=== PATIENT | male | born 1975 | race American Indian/Alaskan Native ===

== ENCOUNTER 2016-02-14 12:25 | Emergency (ER) | payer OTHER ==
[2016-02-14] MEDS ORDERED: DUONEB 0.5 MG-3 MG/3 ML SOLN IH ONE (21:09)
--- NOTE | 2016-02-14 21:11 | Emergency Department Report ---
HPI - General Chief Complaint: Upper Respiratory Infection Time Seen by Provider: 02/14/16 20:52 - HPI HPI: This is a 40 year-old male who presents to the emergency department with complaint of a 2 week history of a productive cough and chest congestion. It is associated with some her minute feelings of hot and cold but the patient has never actually checked himself for fever. He tried some over- the-counter Mucinex D and NyQuil with some transient relief but not resolution. He is a tobacco smoker. No recent travel or sick contacts at home. He does not have a primary care doctor. He denies any chest pain, rash, back pain, nausea, vomiting or diarrhea. ED Past Medical Hx - Past Medical History Previous Medical History?: No Hx Asthma: Yes - Surgical History Past Surgical History?: No - Medications Home Medications: Home Medications Medication Instructions Recorded Confirmed Last Taken Type ALBUTEROL Inhaler [ProAir HFA 2 puff IH QID PRN #1 inhalation 02/14/16 Unknown Rx Inhaler] Azithromycin [Zithromax Z-WYATT] 250 mg PO DAILY #6 tab 02/14/16 Unknown Rx guaiFENesin/CODEINE [Robitussin AC] 5 ml PO Q6H PRN #100 ml 02/14/16 Unknown Rx ED Review of Systems ROS: Stated complaint: CHEST CONGESTION Other details as noted in HPI Comment: All other systems reviewed and negative Constitutional: chills. denies: weakness Eyes: denies: eye pain, eye discharge, vision change ENT: congestion. denies: ear pain, throat pain Respiratory: cough. denies: shortness of breath, wheezing Cardiovascular: denies: chest pain, palpitations Gastrointestinal: denies: abdominal pain, nausea, diarrhea Genitourinary: denies: urgency, dysuria Musculoskeletal: denies: back pain, joint swelling, arthralgia Skin: denies: rash, lesions Neurological: denies: headache, weakness, paresthesias Physical Exam - Physical Exam Vital Signs: Vital Signs 02/14/16 14:53 Temperature 98.7 F Pulse Rate 108 H Respiratory 16 Rate Blood Pressure 159/85 O2 Sat by Pulse 97 Oximetry Physical Exam: GENERAL: The patient is well-developed well-nourished. Patient does not appear in any acute distress. HEENT: Normocephalic. Atraumatic. Extraocular motions are intact. Patient has moist mucous membranes. Pupils equal reactive to light bilaterally. NECK: Supple. Trachea is midline. CHEST/LUNGS: Clear to auscultation. No cough heard during examination. No tachypnea or accessory muscle use. There is no respiratory distress noted. HEART/CARDIOVASCULAR: Regular. There is no tachycardia. There is no gallop rub or murmur. ABDOMEN: Abdomen is soft, nontender. Patient has normal bowel sounds. There is no abdominal distention. Obese habitus. SKIN: There is no rash. There is no edema. There is no diaphoresis. NEURO: The patient is awake, alert, and oriented. The patient is cooperative. The patient has no focal neurologic deficits. The patient has normal speech. MUSCULOSKELETAL: There is no tenderness or deformity. There is no limitation range of motion. There is no evidence of acute injury. ED Course Vital Signs 02/14/16 14:53 Temperature 98.7 F Pulse Rate 108 H Respiratory 16 Rate Blood Pressure 159/85 O2 Sat by Pulse 97 Oximetry ED Medical Decision Making - Radiology Data Radiology results: image reviewed interpreted by me: Chest x-ray did not show any acute process. Heart is normal shape and size. No effusions. No pneumothorax. No signs of pneumonia seen. - Medical Decision Making 40-year-old male presents the emergency department with a 2 to three-week history of lingering productive cough and chest congestion. Patient's vitals stable including being afebrile. Chest x-ray does not show any acute process. Given a breathing treatment and upon reevaluation says he is feeling better. Patient will be discharged home with albuterol inhaler, Robitussin-AC and a Z- Wyatt. Given referrals for primary care. He will return to the ER with any worsening of his symptoms or any acute distress. - Differential Diagnosis URI, bronchitis, pneumonia, asthma Critical Care Time: No Critical care attestation.: If time is entered above; I have spent that time in minutes in the direct care of this critically ill patient, excluding procedure time. ED Disposition Clinical Impression: Bronchitis Upper respiratory infection Qualifiers: URI type: unspecified URI Qualified Code(s): J06.9 - Acute upper respiratory infection, unspecified Hypertension Qualifiers: Hypertension type: essential hypertension Qualified Code(s): I10 - Essential ( primary) hypertension Disposition: DISCHARGED TO HOME OR SELFCARE Is pt being admited?: No Does the pt Need Aspirin: No Condition: Stable Instructions: Acute Bronchitis (ED), Hypertension (ED) Additional Instructions: Please follow-up with a primary care doctor in the next few days. Return to the emergency department with any worsening of your symptoms or any acute distress. You've been prescribed a medication that is sedating. Therefore this medication cannot be mixed with alcohol, or taken prior to driving, working, or being responsible for children. Prescriptions: ALBUTEROL Inhaler [ProAir HFA Inhaler] 2 puff IH QID PRN #1 inhalation PRN Reason: Shortness Of Breath guaiFENesin/CODEINE [Robitussin AC] 5 ml PO Q6H PRN #100 ml PRN Reason: Cough Azithromycin [Zithromax Z-WYATT] 250 mg PO DAILY #6 tab Referrals: PRIMARY CAREMD [Primary Care Provider] - 3-5 Days PINA SPAIN MD [Staff Physician] - 3-5 Days [facility] [Outside] - 3-5 Days Time of Disposition: 22:11
[2016-02-14 22:53] VITALS: BP 139/91
--- NOTE | 2016-02-15 07:55 | XRay Report ---
ROUTINE CHEST, TWO VIEWS: HISTORY: Cough. The trachea, heart, mediastinal contour, lung corona and bony thorax are unremarkable. IMPRESSION: Unremarkable chest x-ray.
== END 2016-02-14 22:46 | disposition home or self-care (01) ==
LOC: ED 12:25
DX: J40 Bronchitis, not specified as acute or chronic (principal); J06.9 Acute upper respiratory infection, unspecified; I10 Essential (primary) hypertension; J45.909 Unspecified asthma, uncomplicated
CPT/HCPCS: 71020; 94640

== ENCOUNTER 2016-09-19 07:55 | Inpatient (IN) | payer OTHER ==
[2016-09-19 08:24] LABS: Eosinophils % (Auto) 0.6 % (0.0-4.3)
[2016-09-19 08:30] LABS: Bilirubin,Urine NEG (Negative); Blood,Urine NEG (Negative); Ketones,Urine TR mg/dL (Negative); Leukocyte Esterase,Urine NEG (Negative); Mucus,Urine FEW /HPF; Nitrite,Urine NEG (Negative); Protein,Urine <15 mg/dL mg/dL (Negative); Urobilinogen,Urine < 2.0 mg/dL (<2.0); WBC,Urine < 1.0 /HPF (0.0-6.0)
[2016-09-19 08:44] LABS: Anion Gap TNR mmol/L; Blood Urea Nitrogen TNR mg/dL (9-20); Carbon Dioxide TNR mmol/L (22-30); Chloride TNR mmol/L (98-107); Potassium TNR mmol/L (3.6-5.0); Sodium TNR mmol/L (137-145)
[2016-09-19 08:45] LABS: BUN/Creatinine Ratio TNR; Calcium TNR mg/dL (8.4-10.2); Glucose TNR mg/dL (75-100)
[2016-09-19 09:00] LABS: Hemoglobin 17.2 gm/dl (11.8-15.2); White Blood Count 6.7 K/mm3 (4.5-11.0)
[2016-09-19 09:02] LABS: Basophils % (Auto) 0.9 % (0.0-1.8); Hematocrit 45.9 % (35.5-45.6); Mean Corpuscular Hemoglobin 33 pg (28-32); Mean Corpuscular Volume 88 fl (84-94); Mean Platelet Volume 11.7 fl (6-12); Platelet Count 296 K/mm3 (140-440); Red Cell Distribution Width 13.1 % (13.2-15.2)
[2016-09-19 09:03] LABS: Mean Corpuscular HGB Conc 37 % (32-34)
[2016-09-19 09:52] LABS: Chloride 77.3 mmol/L (98-107)
[2016-09-19 09:53] LABS: Anion Gap 26 mmol/L; BUN/Creatinine Ratio 28.57; Blood Urea Nitrogen 20 mg/dL (9-20); Carbon Dioxide 20 mmol/L (22-30)
[2016-09-19 09:57] LABS: Sodium 117 mmol/L (137-145)
[2016-09-19 09:58] LABS: Glucose 698 mg/dL (75-100); Potassium 6.5 mmol/L (3.6-5.0)
[2016-09-19] MEDS ORDERED: NovoLIN R 100 UNITS in NACL 0.9% 99 ML IV SCH ×2 (10:00→11:00)
[2016-09-19] MEDS ORDERED: NACL 0.9% 1000 ML 2,000 ML IV ONE (10:00)
[2016-09-19] MEDS ORDERED: D50W (25GM) Syringe IV PRN ×2 (10:00→10:24)
--- NOTE | 2016-09-19 10:03 | Emergency Department Report ---
ED General Adult HPI - General Chief complaint: Urogenital-Male Stated complaint: OVERACTIVE BLADDER/BLURRED VISION Time Seen by Provider: 09/19/16 08:49 Source: patient, RN notes reviewed Mode of arrival: Ambulatory Limitations: No Limitations - History of Present Illness Initial comments: This is a 41-year-old male. He is previously unknown to me. Does not currently have a primary care doctor. Has a past medical history of asthma. Presents to the ER with 2 weeks of painless polyuria, polydipsia, blurry vision , lack of sleep. Symptoms are constant. They're getting worse. They do not have exacerbating or relieving factors. No headache, neck pain, chest pain, abdominal pain, testicular pain, skin rash. -: Gradual Consistency: constant Improves with: rest Associated Symptoms: loss of appetite, malaise, weakness - Related Data Home Medications Medication Instructions Recorded Confirmed Last Taken No Known Home Medications [No 09/19/16 09/19/16 Unknown Reported Home Medications] Allergies Allergy/AdvReac Type Severity Reaction Status Date / Time shellfish derived AdvReac Hives Verified 09/19/16 10:10 ED Review of Systems ROS: Stated complaint: OVERACTIVE BLADDER/BLURRED VISION Other details as noted in HPI Constitutional: malaise, weakness Eyes: vision change. denies: eye discharge ENT: denies: epistaxis Respiratory: denies: cough Cardiovascular: denies: chest pain Gastrointestinal: denies: abdominal pain Genitourinary: frequency Musculoskeletal: denies: back pain Skin: denies: lesions Neurological: weakness Psychiatric: denies: anxiety ED Past Medical Hx - Past Medical History Previous Medical History?: Yes Hx Asthma: Yes - Surgical History Past Surgical History?: No - Social History Smoking Status: Current Every Day Smoker Substance Use Type: Alcohol - Medications Home Medications: Home Medications Medication Instructions Recorded Confirmed Last Taken Type No Known Home Medications [No 09/19/16 09/19/16 Unknown History Reported Home Medications] ED Physical Exam - General Limitations: No Limitations General appearance: alert, in no apparent distress - Head Head exam: Present: atraumatic, normocephalic - Eye Eye exam: Present: normal appearance, EOMI - ENT ENT exam: Present: normal exam, normal orophraynx, mucous membranes moist, normal external ear exam - Neck Neck exam: Present: normal inspection, full ROM. Absent: tenderness, meningismus - Respiratory Respiratory exam: Present: normal lung sounds bilaterally. Absent: respiratory distress, wheezes, rales, rhonchi, stridor, chest wall tenderness - Cardiovascular Cardiovascular Exam: Present: normal rhythm, tachycardia, normal heart sounds. Absent: systolic murmur, diastolic murmur, rubs, gallop - GI/Abdominal GI/Abdominal exam: Present: soft, normal bowel sounds. Absent: distended, tenderness, guarding, rebound, rigid, pulsatile mass - Rectal Rectal exam: Present: deferred - Extremities Exam Extremities exam: Present: normal inspection, full ROM, normal capillary refill. Absent: tenderness, pedal edema, joint swelling, calf tenderness - Back Exam Back exam: Present: normal inspection, full ROM. Absent: tenderness, CVA tenderness (R), CVA tenderness (L), muscle spasm, paraspinal tenderness, vertebral tenderness - Neurological Exam Neurological exam: Present: alert, oriented X3, normal gait, other (Extraocular movements intact. Tongue midline. No facial droop. Facial sensation intact to light touch in the V1, V2, V3 distribution bilaterally. 5 and 5 strength in 4 extremities.. Sensation is intact to light touch in 4 extremities.). Absent : motor sensory deficit - Psychiatric Psychiatric exam: Present: normal affect, normal mood - Skin Skin exam: Present: warm, dry, intact, normal color. Absent: rash ED Course Vital Signs 09/19/16 09/19/16 09/19/16 08:00 09:19 13:02 Temperature 97.9 F Pulse Rate 109 H Respiratory 18 20 Rate Blood Pressure 154/88 O2 Sat by Pulse 97 100 Oximetry ED Medical Decision Making - Lab Data Result diagrams: 09/19/16 08:11 09/19/16 12:54 Vital Signs 09/19/16 09/19/16 08:00 09:19 Temperature 97.9 F Pulse Rate 109 H Respiratory 18 20 Rate Blood Pressure 154/88 O2 Sat by Pulse 97 Oximetry Lab Results 09/19/16 09/19/16 09/19/16 Range/Units 08:03 08:11 08:11 WBC 6.7 (4.5-11.0) K/mm3 RBC 5.20 H (3.65-5.03) M/mm3 Hgb 17.2 H (11.8-15.2) gm/dl Hct 45.9 H (35.5-45.6) % MCV 88 (84-94) fl MCH 33 H (28-32) pg MCHC 37 H (32-34) % RDW 13.1 L (13.2-15.2) % Plt Count 296 (140-440) K/mm3 Lymph % (Auto) 28.4 (13.4-35.0) % Bollinger % (Auto) 9.0 H (0.0-7.3) % Eos % (Auto) 0.6 (0.0-4.3) % Baso % (Auto) 0.9 (0.0-1.8) % Lymph # 1.9 (1.2-5.4) K/mm3 Bollinger # 0.6 (0.0-0.8) K/mm3 Eos # 0.0 (0.0-0.4) K/mm3 Baso # 0.1 (0.0-0.1) K/mm3 Seg Neutrophils % 60.5 (40.0-70.0) % Seg Neutrophils # 4.2 (1.8-7.7) K/mm3 VBG pH (7.320-7.420) Sodium TNR Potassium TNR Chloride TNR Carbon Dioxide TNR Anion Gap TNR BUN TNR Creatinine TNR Estimated GFR TNR BUN/Creatinine Ratio TNR Glucose TNR POC Glucose > 500 H (70-105) Hemoglobin A1c (4-6) % Calcium TNR Phosphorus (2.5-4.5) mg/dL Magnesium (1.7-2.3) mg/dL Urine Color (Yellow) Urine Turbidity (Clear) Urine pH (5.0-7.0) Ur Specific Toney (1.003-1.030) Urine Protein (Negative) mg/dL Urine Glucose (UA) (Negative) mg/dL Urine Ketones (Negative) mg/dL Urine Blood (Negative) Urine Nitrite (Negative) Urine Bilirubin (Negative) Urine Urobilinogen (<2.0) mg/dL Ur Leukocyte Esterase (Negative) Urine WBC (Auto) (0.0-6.0) /HPF Urine RBC (Auto) (0.0-6.0) /HPF Urine Mucus /HPF 09/19/16 09/19/16 09/19/16 Range/Units 08:11 08:53 09:31 WBC (4.5-11.0) K/mm3 RBC (3.65-5.03) M/mm3 Hgb (11.8-15.2) gm/dl Hct (35.5-45.6) % MCV (84-94) fl MCH (28-32) pg MCHC (32-34) % RDW (13.2-15.2) % Plt Count (140-440) K/mm3 Lymph % (Auto) (13.4-35.0) % Bollinger % (Auto) (0.0-7.3) % Eos % (Auto) (0.0-4.3) % Baso % (Auto) (0.0-1.8) % Lymph # (1.2-5.4) K/mm3 Bollinger # (0.0-0.8) K/mm3 Eos # (0.0-0.4) K/mm3 Baso # (0.0-0.1) K/mm3 Seg Neutrophils % (40.0-70.0) % Seg Neutrophils # (1.8-7.7) K/mm3 VBG pH 7.310 L (7.320-7.420) Sodium 117 L* Potassium 6.5 H* Chloride 77.3 L Carbon Dioxide 20 L Anion Gap 26 BUN 20 Creatinine 0.7 L Estimated GFR > 60 BUN/Creatinine Ratio 28.57 Glucose 698 H* POC Glucose > 500 H (70-105) Hemoglobin A1c (4-6) % Calcium 9.0 Phosphorus (2.5-4.5) mg/dL Magnesium (1.7-2.3) mg/dL Urine Color (Yellow) Urine Turbidity (Clear) Urine pH (5.0-7.0) Ur Specific Toney (1.003-1.030) Urine Protein (Negative) mg/dL Urine Glucose (UA) (Negative) mg/dL Urine Ketones (Negative) mg/dL Urine Blood (Negative) Urine Nitrite (Negative) Urine Bilirubin (Negative) Urine Urobilinogen (<2.0) mg/dL Ur Leukocyte Esterase (Negative) Urine WBC (Auto) (0.0-6.0) /HPF Urine RBC (Auto) (0.0-6.0) /HPF Urine Mucus /HPF 09/19/16 09/19/16 09/19/16 Range/Units 10:07 10:07 10:30 WBC (4.5-11.0) K/mm3 RBC (3.65-5.03) M/mm3 Hgb (11.8-15.2) gm/dl Hct (35.5-45.6) % MCV (84-94) fl MCH (28-32) pg MCHC (32-34) % RDW (13.2-15.2) % Plt Count (140-440) K/mm3 Lymph % (Auto) (13.4-35.0) % Bollinger % (Auto) (0.0-7.3) % Eos % (Auto) (0.0-4.3) % Baso % (Auto) (0.0-1.8) % Lymph # (1.2-5.4) K/mm3 Bollinger # (0.0-0.8) K/mm3 Eos # (0.0-0.4) K/mm3 Baso # (0.0-0.1) K/mm3 Seg Neutrophils % (40.0-70.0) % Seg Neutrophils # (1.8-7.7) K/mm3 VBG pH (7.320-7.420) Sodium 121 L Potassium 7.4 H* Chloride 81.3 L Carbon Dioxide 20 L Anion Gap 27 BUN 19 Creatinine < 0.2 L D Estimated GFR > 60 BUN/Creatinine Ratio 95.00 Glucose 710 H* POC Glucose (70-105) Hemoglobin A1c 11.6 H (4-6) % Calcium 9.6 Phosphorus 5.00 H 5.20 H (2.5-4.5) mg/dL Magnesium 2.50 H 2.50 H (1.7-2.3) mg/dL Urine Color (Yellow) Urine Turbidity (Clear) Urine pH (5.0-7.0) Ur Specific Toney (1.003-1.030) Urine Protein (Negative) mg/dL Urine Glucose (UA) (Negative) mg/dL Urine Ketones (Negative) mg/dL Urine Blood (Negative) Urine Nitrite (Negative) Urine Bilirubin (Negative) Urine Urobilinogen (<2.0) mg/dL Ur Leukocyte Esterase (Negative) Urine WBC (Auto) (0.0-6.0) /HPF Urine RBC (Auto) (0.0-6.0) /HPF Urine Mucus /HPF 09/19/16 Range/Units Unknown WBC (4.5-11.0) K/mm3 RBC (3.65-5.03) M/mm3 Hgb (11.8-15.2) gm/dl Hct (35.5-45.6) % MCV (84-94) fl MCH (28-32) pg MCHC (32-34) % RDW (13.2-15.2) % Plt Count (140-440) K/mm3 Lymph % (Auto) (13.4-35.0) % Bollinger % (Auto) (0.0-7.3) % Eos % (Auto) (0.0-4.3) % Baso % (Auto) (0.0-1.8) % Lymph # (1.2-5.4) K/mm3 Bollinger # (0.0-0.8) K/mm3 Eos # (0.0-0.4) K/mm3 Baso # (0.0-0.1) K/mm3 Seg Neutrophils % (40.0-70.0) % Seg Neutrophils # (1.8-7.7) K/mm3 VBG pH (7.320-7.420) Sodium Potassium Chloride Carbon Dioxide Anion Gap BUN Creatinine Estimated GFR BUN/Creatinine Ratio Glucose POC Glucose (70-105) Hemoglobin A1c (4-6) % Calcium Phosphorus (2.5-4.5) mg/dL Magnesium (1.7-2.3) mg/dL Urine Color Colorless (Yellow) Urine Turbidity Clear (Clear) Urine pH 5.0 (5.0-7.0) Ur Specific Toney 1.029 (1.003-1.030) Urine Protein <15 mg/dl (Negative) mg/dL Urine Glucose (UA) >=500 (Negative) mg/dL Urine Ketones Tr (Negative) mg/dL Urine Blood Neg (Negative) Urine Nitrite Neg (Negative) Urine Bilirubin Neg (Negative) Urine Urobilinogen < 2.0 (<2.0) mg/dL Ur Leukocyte Esterase Neg (Negative) Urine WBC (Auto) < 1.0 (0.0-6.0) /HPF Urine RBC (Auto) 1.0 (0.0-6.0) /HPF Urine Mucus Few /HPF - EKG Data -: EKG Interpreted by Al Rate: tachycardia - EKG Data 09/19/16 11:48 Sinus tachycardia, 110 bpm, normal axis, normal intervals, not morphologically consistent with STEMI, abnormal EKG. - Radiology Data Radiology results: report reviewed, image reviewed X-ray of the chest is negative for acute disease - Medical Decision Making Differential diagnosis: Diabetic ketoacidosis, hyperosmolar state, dehydration, a Y derangement Assessment and plan: 41-year-old male with pseudohyponatremia, anion gap acidosis, hyperglycemia, consistent with new onset DKA and dehydration. Hyperkalemia is appreciated. This will resolve with IV fluids and insulin administration. Case is presented to the critical care physician, Dr. Pedro Petty, who agrees with placement to the intensive care unit. Case is presented to the hospital nurse practitioner, Mely Coleman and she accepts the patient to the internal medical service. X-ray of the chest negative. Urinalysis is not consistent with urinary tract infection., Critical Care Time: Yes Critical care time in (mins) excluding proc time.: 35 Critical care attestation.: If time is entered above; I have spent that time in minutes in the direct care of this critically ill patient, excluding procedure time. Critical Care Time: Critical care time includes multiple bedside evaluations, interpretation of laboratory studies, radiology studies, time spent managing critically ill patient with diabetic ketoacidosis, requiring consultation with hospital medicine, critical care medicine, insulin drip initiation. this does not include procedure time ED Disposition Clinical Impression: DKA (diabetic ketoacidoses) Disposition: OP ADMIT IP TO THIS HOSP Is pt being admited?: Yes Condition: Good
[2016-09-19] MEDS ORDERED: DULCOLAX PR PRN ×2 (10:22→12:10)
[2016-09-19] MEDS ORDERED: ALUM-MAG HYDROX-SIMETH 200-200-20MG/5ML PO PRN ×2 (10:22→12:10)
[2016-09-19] MEDS ORDERED: ZOFRAN IM PRN (10:26)
--- NOTE | 2016-09-19 10:27 | Progress Note ---
Hospitalist Physical - Constitutional Vitals: Temp Pulse Resp BP Pulse Ox 97.9 F 109 H 20 154/88 97 09/19/16 08:00 09/19/16 08:00 09/19/16 09:19 09/19/16 08:00 09/19/16 08:00 Results - Labs CBC & Chem 7: 09/19/16 08:11 09/19/16 08:53 Labs: Laboratory Last Values WBC 6.7 K/mm3 (4.5-11.0) 09/19/16 08:11 RBC 5.20 M/mm3 (3.65-5.03) H 09/19/16 08:11 Hgb 17.2 gm/dl (11.8-15.2) H 09/19/16 08:11 Hct 45.9 % (35.5-45.6) H 09/19/16 08:11 MCV 88 fl (84-94) 09/19/16 08:11 MCH 33 pg (28-32) H 09/19/16 08:11 MCHC 37 % (32-34) H 09/19/16 08:11 RDW 13.1 % (13.2-15.2) L 09/19/16 08:11 Plt Count 296 K/mm3 (140-440) 09/19/16 08:11 Lymph % (Auto) 28.4 % (13.4-35.0) 09/19/16 08:11 Morton % (Auto) 9.0 % (0.0-7.3) H 09/19/16 08:11 Eos % (Auto) 0.6 % (0.0-4.3) 09/19/16 08:11 Baso % (Auto) 0.9 % (0.0-1.8) 09/19/16 08:11 Lymph # 1.9 K/mm3 (1.2-5.4) 09/19/16 08:11 Morton # 0.6 K/mm3 (0.0-0.8) 09/19/16 08:11 Eos # 0.0 K/mm3 (0.0-0.4) 09/19/16 08:11 Baso # 0.1 K/mm3 (0.0-0.1) 09/19/16 08:11 Seg Neutrophils % 60.5 % (40.0-70.0) 09/19/16 08:11 Seg Neutrophils # 4.2 K/mm3 (1.8-7.7) 09/19/16 08:11 VBG pH 7.310 (7.320-7.420) L 09/19/16 08:11 Sodium 117 mmol/L (137-145) L* 09/19/16 08:53 Potassium 6.5 mmol/L (3.6-5.0) H* 09/19/16 08:53 Chloride 77.3 mmol/L (98-107) L 09/19/16 08:53 Carbon Dioxide 20 mmol/L (22-30) L 09/19/16 08:53 Anion Gap 26 mmol/L 09/19/16 08:53 BUN 20 mg/dL (9-20) 09/19/16 08:53 Creatinine 0.7 mg/dL (0.8-1.5) L 09/19/16 08:53 Estimated GFR > 60 ml/min 09/19/16 08:53 BUN/Creatinine Ratio 28.57 % 09/19/16 08:53 Glucose 698 mg/dL (75-100) H* 09/19/16 08:53 POC Glucose > 500 (70-105) H 09/19/16 09:31 Calcium 9.0 mg/dL (8.4-10.2) 09/19/16 08:53 Urine Color Colorless (Yellow) 09/19/16 Unknown Urine Turbidity Clear (Clear) 09/19/16 Unknown Urine pH 5.0 (5.0-7.0) 09/19/16 Unknown Ur Specific [place]dwell 1.029 (1.003-1.030) 09/19/16 Unknown Urine Protein <15 mg/dl mg/dL (Negative) 09/19/16 Unknown Urine Glucose (UA) >=500 mg/dL (Negative) 09/19/16 Unknown Urine Ketones Tr mg/dL (Negative) 09/19/16 Unknown Urine Blood Neg (Negative) 09/19/16 Unknown Urine Nitrite Neg (Negative) 09/19/16 Unknown Urine Bilirubin Neg (Negative) 09/19/16 Unknown Urine Urobilinogen < 2.0 mg/dL (<2.0) 09/19/16 Unknown Ur Leukocyte Esterase Neg (Negative) 09/19/16 Unknown Urine WBC (Auto) < 1.0 /HPF (0.0-6.0) 09/19/16 Unknown Urine RBC (Auto) 1.0 /HPF (0.0-6.0) 09/19/16 Unknown Urine Mucus Few /HPF 09/19/16 Unknown
[2016-09-19 10:47] LABS: Blood Urea Nitrogen 19 mg/dL (9-20); Chloride 81.3 mmol/L (98-107); Sodium 121 mmol/L (137-145)
--- NOTE | 2016-09-19 11:05 | Admit Criteria Form ---
Admission Criteria Documentation: GENERAL ADMISSION CRITERIA (Place 'X' for any and all applicable criteria): Admission is indicated for ANY ONE of the following: [ ]I. Hemodynamic instability as indicated by ANY ONE of the following(1)(2) (3)(4)(5): [ ]a) Vital sign abnormality not readily corrected by appropriate treatment within 12 to 24 hours indicated by ANY ONE of the following: [ ]i) Hypotension [ ]ii) Symptomatic Tachycardia unresponsive to treatment (eg , analgesia, fluids, sedation as indicated) [ ]iii) Orthostatic vital sign changes unresponsive to treatment (eg, fluids) [ ]b) Vital sign abnormality that is severe indicated by ANY ONE of the following: [ ]i) Inadequate perfusion indicated by ANY ONE of the following: [ ]1) Lactic acidosis (greater than 2 mmol/L) [ ]2) New abnormal capillary refill (greater than 3 seconds) [ ]3) Other metabolic acidosis (arterial pH less than 7.35) not otherwise explained [ ]4) Reduced urine output [ ]5) Altered mental status [ ]6) Myocardial Ischemia [ ]v) Mean arterial pressure[A] less than 60 mm Hg [ ]vi) Mean arterial pressure[A] less than 70 mm Hg after 30 minutes of appropriate treatment (eg, fluid resuscitation) [ ]vii) IV inotropic or vasopressor medication required to maintain adequate blood pressure or perfusion [ ]viii) Sustained heart rate greater than 120 beats per minute in adult or child 6 years or older[B]] [ ]II. Hypertension requiring inpatient treatment as indicated by ANY ONE of the following(6)(7)(8): [ ]a) SBP greater than 220 mm Hg or DBP greater than 120 mm Hg despite treatment [ ]b) SBP greater than 140 mm Hg or DBP greater than 100 mm Hg with evidence of acute end organ damage as indicated by ANY ONE of the following: [ ]i) Encephalopathy [ ]ii) Acute renal failure as indicated by new onset of ANY ONE of the following(9)(10)(11)(12)(13): [ ]1) A 3-fold rise in serum creatinine from baseline [ ]2) Serum creatinine greater than 4 mg/dL ( 354 micromoles/L) with acute rise greater than 0.5 mg/dL (44.2 micromoles/L) [ ]3) Reduction of more than 75% in estimated glomerular filtration rate from baseline [ ]4) Estimated glomerular filtration rate less than 35 mL/min/1.73m2 (0.59 mL/sec/1.73m2) in child up to 18 years of age [ ]5) Cessation of urine output indicated by ALL of the following: [ ]A. Adequate volume status [ ]B. Inadequate urine output as indicated by ANY ONE of the following: [ ]a. Urine output less than 0.3 mL/kg/hr for 24 hours [ ]b. Anuria (urine output less than 0.1 mL/kg/hr) for 12 hours [ ]iii) Aortic dissection [ ]iv) Myocardial ischemia [ ]v) Left ventricular heart failure [ ]vi) Retinal hemorrhage [ ]vii) Other significant finding [ ]c) Hypertension in child requiring inpatient treatment as indicated by ALL of the following(14)(15)(16): [ ]i) Outpatient treatment not effective, not available, or not appropriate [ ]ii) SBP or DBP greater than 95th percentile for age [ ]iii) Evidence of acute end organ damage as indicated by ANY ONE of the following: [ ]1) Altered mental status [ ]2) Acute renal failure as indicated by new onset of ANY ONE of the following(9)(10)(11)(12)(13): [ ]A. A 3-fold rise in serum creatinine from baseline [ ]B. Serum creatinine greater than 4 mg/dL (354 micromoles/L) with acute rise greater than 0.5 mg/dL (44.2 micromoles/L) [ ]C. Reduction of more than 75% in estimated glomerular filtration rate from baseline [ ]D. Estimated glomerular filtration rate less than 35 mL/min/1.73m2 (0.59 mL/sec/1.73m2)in child up to 18 years of age [ ]E. Cessation of urine output indicated by ALL of the following: [ ]a. Adequate volume status [ ]b. Inadequate urine output as indicated by ANY ONE of the following: [ ]1) Urine output less than 0.3 mL/kg/hr for 24 hours [ ]2) Anuria (urine output less than 0.1 mL/kg/hr) for 12 hours [ ]3) Severe headache [ ]4) Visual disturbance [ ]5) Retinal hemorrhage [ ]6) Other significant finding [ ]III. Acute cardiac or peripheral ischemia as indicated by ANY ONE of the following: [ ]a) Acute coronary syndrome(17)(18) [ ]b) Acute peripheral ischemia (eg, pulseless, cool, mottled, or cyanotic extremity)(19) [ ]IV. Cardiac arrhythmias or findings of immediate concern indicated by ANY ONE of the following(20)(21): [ ]a) Heart rhythms that are inherently dangerous or unstable indicated by ANY ONE of the following(22)(23)(24): [ ]i) Resuscitated ventricular fibrillation or cardiac arrest [ ]ii) Ventricular escape rhythm [ ]iii) Sustained ventricular tachycardia (30 seconds or more of ventricular rhythm at greater than 100 beats per minute) [ ]iv) Nonsustained ventricular tachycardia and ANY ONE of the following: [ ]1) Suspected cardiac ischemia as cause or consequence of ventricular tachycardia [ ]2) In setting of acute myocarditis [ ]b) Unstable cardiac conduction defects indicated by ANY ONE of the following(24)(25)(26): [ ]i) Type II second-degree atrioventricular block [ ]ii) Third-degree atrioventricular block [ ]iii) New-onset left bundle branch block with suspected myocardial ischemia [ ]c) Any heart rhythm and ANY ONE of the following(22)(23)(27)(28)( 29): [ ] i) Continuous long-term ECG monitoring needed (eg, initiation of drug requiring monitoring for more than 24 hours) [ ] ii) Patient has automatic implanted cardioverter defibrillator that is repeatedly firing, malfunctioning, or in need of immediate adjustment of settings beyond the scope of ambulatory or observation care. [ ]d) Heart rhythms of concern due to ANY ONE of the following: [ ]i) Hypotension [ ]ii) Respiratory distress [ ]iii) Association with other significant symptoms (eg, bradycardia with syncope or ongoing dizziness, supraventricular tachycardia with chest pain) (27)(28) (30) [ ] V. Severe heart failure as indicated by ANY ONE of the following ( 31)(32): [ ]a) Respiratory distress [ ]b) Hypotension [ ]c) Anasarca (refractory to outpatient therapy) [ ]d) Cardiac arrhythmias of immediate concern [ ]e) Myocardial ischemia [ ]. Respiratory abnormalities, including ANY ONE of the following(33)(34) (35)(36): [ ]a) Respiratory rate greater than 30 breaths per minute unresponsive to treatment [A] [ ]b) New saturation of arterial oxygen less than 90% [ ]c) New partial pressure of carbon dioxide greater than 44 mm Hg ( 5.9 kPa) [ ]d) Supplemental oxygen or respiratory treatments needed that are new or not performable at other levels of care [ ]e) New-onset cyanosis [ ]f) Inability to protect airway [ ]g) Chronic lung disease with severe deterioration (not responsive to emergency and observation care treatment as appropriate) as indicated by ANY ONE of the following(34)(36 ): [ ]i) SaO2 5% below baseline in patient with chronic hypoxemia [ ]ii) New requirement for supplemental oxygen to keep SaO2 at baseline or acceptable level [ ]iii) Required supplemental oxygen performable only in acute inpatient setting [ ]iv) Severe airflow or ventilation abnormalities [ ]v) Previously mobile patient unable to walk between rooms [ ]vi Inability to eat or sleep due to dyspnea [ ]vii) Rapid rate of exacerbation onset [ ]viii) Altered mental status ]VII. Severe airflow or ventilation abnormalities (not responsive to emergency and observation care treatment as appropriate) as indicated by ANY ONE of the following(33)(34)(35)(37): [ ]a) PCO2 greater than 42 mm Hg (5.6 kPa) and pH less than 7.35 (new ) [ ]b) Documented PCO2 increased more than 5 mm Hg (0.7 kPa) from disease baseline [ ]c) Airflow measurements [B] less than 60% of previous best or predicted (eg, peak expiratory flow rate less than 300 L/minute) despite intensive emergent treatment [C] [ ]d) Required respiratory treatments that are performable only in acute inpatient setting [ ]VIII. Impending or actual respiratory arrest ( Also use Respiratory Failure GRG for severe respiratory disease and long-term mechanical ventilation patients) [ ]IX. Neurologic abnormalities, including ANY ONE of the following: [ ]a) New findings that suggest ANY ONE of the following: [ ]i) HOSPITAL ATTENDANT infection(38) [ ]ii) Cerebral bleeding, ischemia, or vasospasm(39)(40) [ ]iii) Increased intracranial pressure, hydrocephalus, or cerebral edema(41)(42)(43) [ ]iv) Spinal cord injury(44) [ ]b) Uncontrolled seizures(45) [ ]c) New-onset coma (eg, [place] coma scale score less than 9) or unexplained abnormal mental status (eg, [place] coma scale score less than 14) [D](41)(46)(47) [ ]X. New-onset severe neurologic findings requiring inpatient care; examples include(42)(48)(49): [ ]a) Papilledema [ ]b) Cerebral edema [ ]c) Mass effect on CT scan [ ]XI. Suspected acute intra-abdominal process with peritoneal signs, abdominal mass, or similar findings (50)(51)(52) [X ]XII. Severe physiologic disorder remaining after emergency or observation level care (as appropriate) as indicated by ANY ONE of the following (53): [ ]a) Significant dehydration [ X]b) Diabetic ketoacidosis [ ]c) Hyperglycemic hyperosmolar state (eg, osmolality greater than 320 mOsm/kg (mmol/kg) [ ]d) Hypoglycemia [ ]e) Other (new) acid-base disorder with pH less than 7.35 or greater than 7.5(54) [ ]f) Thyroid storm (55) [ ]g) Myxedema coma (55) [ ]XIII. Abdominal abnormalities with ANY ONE of the following(56)(57): [ ]a) Absent bowel sounds with complete ileus [ ]b) Signs of intestinal obstruction or peritonitis [E] [ ]c) Nausea and vomiting that cannot be controlled with outpatient or observation care [ ]XIV. Acute renal failure as indicated by new onset of ANY ONE of the following(9)(10)(11)(12)(13): [ ]a) A 3-fold rise in serum creatinine from baseline [ ]b) Serum creatinine greater than 4 mg/dL (354 micromoles/L) with acute rise greater than 0.5 mg/dL (44.2 micromoles/L) [ ]c) Reduction of more than 75% in estimated glomerular filtration rate from baseline [ ]d) Estimated glomerular filtration rate less than 35 mL/min/ 1.73m2 (0.59 mL/sec/1.73m2) in child up to 18 years of age [ ]e) Cessation of urine output indicated by ALL of the following: [ ]i) Adequate volume status [ ]ii) Inadequate urine output as indicated by ANY ONE of the following: [ ]1) Urine output less than 0.3 mL/kg/hr for 24 hours [ ]2) Anuria (urine output less than 0.1 mL/kg/hr) for 12 hours [ ]XV. Significant uremic complications as indicated by ANY ONE of the following(58)(59)(60): [ ]a) Outpatient therapy is ineffective or not feasible for ANY ONE of the following: [ ]i) Severe heart failure [ ]ii) Severehypertension [ ]iii) Pleural effusion [ ]iv) Pericarditis or pericardial effusion [ ]b) Cardiac arrhythmias of immediate concern [ ]c) Intractable nausea or vomiting [ ]d) Recurrent seizures [ ]e) Encephalopathy [ ]f) Bleeding abnormalities (eg, platelet dysfunction) with active (eg, gastrointestinal) bleeding [ ]g) Dialysis indicated before long-term access or ambulatory arrangements can be made [ ]h) Significant metabolic or electrolyte abnormalities (eg, severe acidosis or hyperkalemia) [ ]XVI. High fever or other high-risk infection situation as indicated by ANY ONE of the following(61)(62)(63)(64): [ ]a) Outpatient and observation care antimicrobial treatment unavailable, not effective, or not appropriate [ ]b) Documented bacteremia [ ]c) Temperature greater than 40.5 degrees C (104.9 degrees F) ( oral) [ ]d) Temperature greater than 39.5 degrees C (103.1 degrees F) ( oral) or less than 36 degrees C (96.8 degrees F) (rectal) that does not respond to e treatment and observation care [ ] XVII. Temperature less than 95 degrees F (35 degrees C)(rectal)(65) [ ] XVIII. Severe nutritional abnormalities as indicated by ALL of the following (66)(67): [ ]a) Inability to tolerate or establish sufficient oral or other enteral nutrition in outpatient setting [ ]b) Parenteral nutrition regimen need that must be implemented on inpatient basis [ ] XIX. Severe electrolyte abnormalities indicated by ALL of the following(68) (69)(70): [ ]a) Electrolytes and associated findings are not as expected for patient baseline or acceptable treatment effects. [ ]b) Severe abnormalities indicated by ANY ONE of the following: [ ]i) Sodium less than 130 mEq/L (mmol/L) (new) [ ]ii)Sodium less than 135 mEq/L (mmol/L) with ANY ONE of the following: [ ]1) Uncorrectable (to near normal or chronic baseline) after trial of outpatient and emergency treatment [ ]2) Altered mental status [ ]3) Seizures [ ]4) Severe medical etiology requiring inpatient management (eg, heart failure, hypovolemia) [ ]iii) Sodium greater than 155 mEq/L (mmol/L) [ ]iv) Sodium greater than 150 mEq/L (mmol/L) with ANY ONE of the following: [ ]1) Uncorrectable (to near normal or chronic baseline) with outpatient and emergency treatment [ ]2) Altered mental status [ ]3) Seizures [ ]4) Severe medical etiology (eg, hypovolemia, diabetes insipidus) [ ]v) Potassium less than 2.5 mEq/L (mmol/L) despite outpatient and emergency treatment [ ]vi) Potassium less than 3 mEq/L (mmol/L) with ANY ONE of the following: [ ]1) Weakness [ ]2) Cardiac abnormality (eg, arrhythmia, conduction disturbance) [ ]3) Cardiac ischemia [ ]4) Ileus [ ]5) Ongoing medical cause requiring inpatient management (eg, acute renal wasting or SIADH) [ ]6) Other severe symptoms [ ]vii) Potassium greater than 6.5 mEq/L (mmol/L) [ ]viii) Potassium greater than 5 mEq/L (mmol/L) with ANY ONE of the following: [ ]1) Uncorrectable (to near normal or chronic baseline) with outpatient and emergency treatment [ ]2) Severe ECG findings [F] [ ]3) Acute worsening of renal failure (creatinine greater than 2.5 mg/dL (221 micromoles/L) or significant elevation for age and size) [ ]4) Severe weakness [ ]5) Severe medical etiology (eg, hemolysis, infection, drug overdose) [ ]ix) Calcium less than 7 mg/dL (1.75 mmol/L) despite outpatient and emergency treatment (72) [ ]x) Calcium less than 8 mg/dL (2 mmol/L) with significant symptoms or findings; examples include(72): [ ]1) Altered mental status [ ]2) Muscle spasms [ ]3) Seizures [ ]4) Breathing difficulty [ ]5) Cardiac abnormality (eg, arrhythmia or conduction disturbance) [ ]xi) Calcium greater than 14 mg/dL (3.5 mmol/L)(72) [ ]xii) Calcium greater than 12 mg/dL (3 mmol/L) with ANY ONE of the following(72): [ ]1) Uncorrectable (to near normal or chronic baseline) with outpatient and emergency treatment [ ]2) Significant dehydration or hypovolemia as indicated by ALL of the following(70)(73)(74): [ ]A. Not resolved with initial treatments [ ]B. Clinically significant dehydration as indicated by ANY ONE of the following: [ ]a. Vomiting refractory to outpatient treatment (ie, precluding oral rehydration) [ ]b. Inability to drink [ ]c. Hypernatremia or other electrolyte abnormality unable to be corrected with outpatient and emergency treatment [ ]d. Failure to remain hydrated with outpatient therapy [ ]e. Reduced urine output [ ]f. Hypotension [ ]g. Serious cause for dehydration requiring acute hospitalization (eg, bowel obstruction, increased intracranial pressure, infectious cause) [ ]h. Child with ANY ONE of the following(75): [ ]1) Severe abdominal tenderness [ ]2) Adequate care not available at home [ ]3) Severe dehydration ( greater than 9% loss of body weight) [ ]4) Significant symptoms or findings; examples include: [ ]A. Altered mental status [ ]B. Cardiac abnormality (eg, arrhythmia, conduction disturbance) [ ]C. Malignant etiology requiring inpatient treatment [ ]xiii) Phosphorus less than 1 mg/dL (0.32 mmol/L) [ ]xiv) Phosphorus less than 1.5 mg/dL (0.48 mmol/L) with ANY ONE of the following: [ ]1) Patient unresponsive to outpatient and emergency treatment [ ]2) Significant symptoms or findings; examples include: [ ]A. Weakness [ ]B. Altered mental status [ ]C. Breathing difficulty [ ]D. Seizures [ ]E. Rhabdomyolysis [ ]xv) Phosphorus greater than 10 mg/dL (3.2 mmol/L) [ ]xvi) Phosphorus greater than 4.5 mg/dL (1.45 mmol/L) (new) with ANY ONE of the following: [ ]1) Severe medical etiology (eg, crush injury, acute renal failure) [ ]2) Associated hypocalcemia with significant findings; examples include: [ ]A. Neurologic symptoms [ ]B. Altered mental status [ ]C. Muscle spasms [ ]D. Seizures [ ]E. Breathing difficulty [ ]F. Cardiac abnormality (eg, arrhythmia, conduction disturbance) [ ]xvii) Magnesium less than 1 mg/dL (0.41 mmol/L) [ ]xviii) Magnesium less than 1.5 mg/dL (0.62 mmol/L) with ANY ONE of the following: [ ]1) Patient unresponsive to outpatient and emergency treatment [ ]2) Associated hypocalcemia with significant findings; examples include: [ ]A. Altered mental status [ ]B. Muscle spasms [ ]C. Seizures [ ]D. Breathing difficulty [ ]E. Cardiac abnormality (eg, arrhythmia , conduction disturbance) [ ]3) Associated hypokalemia (potassium less than 3 mEq/L (mmol/L)) with risk of arrhythmia [ ]xix) Magnesium greater than 4 mEq/L (2 mmol/L) [ ]xx) Magnesium greater than 2.5 mEq/L (1.25 mmol/L) with significant symptoms or findings; examples include: [ ]1) Weakness [ ]2) Altered mental status [ ]3) Cardiac abnormality (eg, arrhythmia, conduction disturbance) [ ]4) Breathing difficulty [ ]5) Severe medical etiology (eg, renal failure, hypovolemia) [ ]xxi) Uric acid greater than 20 mg/dL (1190 micromoles/L)(76) [ ]xxii) Uric acid greater than 8 mg/dL (476 micromoles/L) with significant symptoms or findings of tumor lysis syndrome; examples include(76): [ ]1) Creatinine greater than 1.5 times upper limit of normal [ ]2) Cardiac abnormality (eg, arrhythmia, conduction disturbance) [ ]3) Seizure [ ]XX. Acute blood loss causing significant abnormality as indicated by ANY ONE of the following(77)(78): [ ]a) Hemoglobin less than 10 g/dL (100 g/L) (not baseline) [ ]b) Hematocrit less than 30% (0.30) (not baseline) [ ]c) Repeat hematocrit decreased more than 2% (0.02) [ ]d) Uncontrolled bleeding [ ]XXI. Severe anemia indicated by ANY ONE of the following(78)(79): [ ]a) Altered mental status [ ]b) Chest pain [ ]c) Exertional dyspnea [ ]d) Syncope [ ]e) Other findings suggesting inadequate perfusion [ ]f) Treatment with transfusion or volume replacement is ineffective at resolving ANY ONE of the following [G]: [ ]i) Tachycardia for age [ ]ii) Orthostatic vital sign changes as indicated by ANY ONE of the following(80): [ ]1) Fall in SBP of 20 mm Hg or more 1 to 3 minutes after patient sits or stands from recumbent position [ ]2) Fall in DBP of 10 mm Hg or more 1 to 3 minutes after patient sits or stands from recumbent position [ ]XXII. High-risk low platelet count as indicated by ANY ONE of the following( 81)(82): [ ]a) Severe or life-threatening bleeding (eg, intracranial, major gastrointestinal, or extensive mucosal bleeding), with any reduced platelet count [ ]b) Platelet count less than 20,000/mm3 (20 x109/L) with any active bleeding [ ]c) Platelet count less than 10,000/mm3 (10 x109/L) with minor purpura or petechiae [ ]d) Platelet count less than 5000/mm3 (5 x109/L) [ ]e) Low platelet count with hemolytic anemia [ ]XXIII. Disseminated intravascular coagulation(77)(83) [ ]XXIV. Severe adverse drug or systemic toxin reaction requiring inpatient treatment; examples include(84)(85): [ ]a) Serotonin syndrome(86) [ ]b) Neuroleptic malignant syndrome(86) [ ]c) Cholinergic syndrome with severe symptoms (eg, bronchorrhea, weakness, mental status changes, seizures) [ ]d) Sympathetic syndrome with severe symptoms (eg, seizures, mental status changes, cardiac dysrhythmias) [ ]e) Anticholinergic syndrome [ ]XXV. Severe pain requiring acute inpatient management as indicated by ALL of the following (87)(88)(89): [ ]a) Continuous or frequent (eg, every 2 to 4 hours) parenteral analgesics required [H] [ ]b) Rapid improvement expected from treatment or acute intervention (eg, surgery, anesthesia procedure) [ ]XXVI.Severe behavioral health issues judged unmanageable at a lower level of care (eg, residential) in a patient who is ANY ONE of the following(91) [ ]a) Acutely suicidal [ ]b) A danger to self (eg, self-mutilating or suicidal behavior) [ ]c) A danger to others (eg, assaultive or homicidal behavior) [ ]d) Incapacitated because of grave disability (eg, inability to provide for self at lower level of care) (92) [ ]XXVII. Inpatient monitoring needed; examples include(1)(3)(87)(93)(94)(95)(96 ): [ ]a) Vital signs, neurologic signs, or vascular checks more frequently than every 4 hours [ ]b) Cardiac or respiratory monitoring beyond the scope (eg, over 24 hours) of observation care [ ]c) Pulmonary artery catheter monitoring [ ]d) Suspected compartment syndrome(97) (98) [ ]e) Cerebral bleeding, hydrocephalus, or vasospasm monitoring [ ]f) Increased intracranial pressure or cerebral edema monitoring [ ]g) monitoring [ ]XXVIII. Treatment requiring inpatient care; examples include: [ ]a) IV fluid to replace significant ongoing losses (greater than 3 L/m2 per day)(53) [ ]b) High concentration oxygen (greater than 40%)(33)(99)(100) [ ]c) Frequent respiratory therapy (more frequently than every 4 hours) to maintain airflow rates greater than 60% of baseline(33)(99)(100) [ ]d) Epidural analgesia(87) [ ]e) IV anticoagulation, vasoactive, or antiarrhythmic medication(19 )(23) [ ]f) Acute thrombolytics (generally require 24 hours of observation )(101)(102) [ ]XXIX. Emergency procedures needed; examples include: [ ]a) Emergency inpatient surgery [ ]b) Temporary pacemaker placement(103) [ ]c) Chest tube placement with active evacuation (eg, suction, drainage)(104) [ ]d) Emergent cardioversion(105) [ ]e) Emergent cardiac or vascular procedures (eg, cardiac catheterization, angioplasty) (17)(18) [ ]f) Emergent dialysis access placement and institution(10)(106) [ ]g) Emergent pericardiocentesis(107) [ ]h) Emergent plasmapheresis or leukapheresis(83) [ ]i) Emergent tracheostomy The original [employer] content created by [employer] has been revised. The portions of the content which have been revised are identified through the use of italic text or in bold, and [employer] has neither reviewed nor approved the modified material. All other unmodified content is copyright [employer]. Please see references footnoted in the original [employer] edition 2016 Admission Criteria Met: Yes
[2016-09-19 11:14] LABS: Glucose 710 mg/dL (75-100); Potassium 7.4 mmol/L (3.6-5.0)
[2016-09-19 11:17] LABS: Magnesium 2.5 mg/dL (1.7-2.3); Phosphorous 5.2 mg/dL (2.5-4.5)
--- NOTE | 2016-09-19 11:18 | XRay Report ---
CHEST ONE VIEW INDICATION: DKA, weakness. COMPARISON: 02/14/2016. FINDINGS: Portable, single, frontal chest radiograph demonstrates normal cardiomediastinal silhouette. Clear lungs. Unremarkable bones. Extrinsic EKG leads. CONCLUSION: No acute disease in the chest. Thank you for the opportunity to participate in this patient's care.
[2016-09-19 11:20] LABS: Anion Gap 27 mmol/L; Calcium 9.6 mg/dL (8.4-10.2); Carbon Dioxide 20 mmol/L (22-30)
[2016-09-19] MEDS ORDERED: MILK OF MAGNESIA PO PRN (12:10)
[2016-09-19 13:23] LABS: Blood Urea Nitrogen 20 mg/dL (9-20); Calcium 9.7 mg/dL (8.4-10.2); Chloride 86.2 mmol/L (98-107); Glucose 468 mg/dL (75-100); Sodium 126 mmol/L (137-145)
[2016-09-19 13:46] LABS: Anion Gap 26 mmol/L; Carbon Dioxide 21 mmol/L (22-30)
--- NOTE | 2016-09-19 13:55 | History and Physical Report ---
<EVER DURÁN - Last Filed: 09/19/16 13:42> History of Present Illness Date of examination: 09/19/16 Date of admission: 09/19/16 10:22 Chief complaint: Frequent urination and blurred vision History of present illness: patient is a 41 years old -Russian male with no past medical history who presents to the emergency room complaining frequent urination and blurred vision. Patient was at his normal baseline state of health 2 weeks ago now he has had progressive worsening of being fatigue, lack of sleeping, frequent urination, thirsty and blurred vision to where he cannot walk across a room or move without becoming dizzy or lightheaded. NO exacerbating or relieving factors. Patient stated that he never felt this way before. He never diagnosed with diabetes mellitus, but his mom had DM. patient denies headache, neck pain, chest pain, shortness of breath, abdominal pain, testicular pain, skin rash. Past History Past Medical History: No medical history Past Surgical History: No surgical history Social history: denies: smoking, alcohol abuse, prescription drug abuse Family history: CAD, diabetes, hypertension Medications and Allergies Allergies Allergy/AdvReac Type Severity Reaction Status Date / Time shellfish derived AdvReac Hives Verified 09/19/16 10:10 Home Medications Medication Instructions Recorded Confirmed Last Taken Type No Known Home Medications [No 09/19/16 09/19/16 Unknown History Reported Home Medications] Active Meds: Active Medications Al Hydrox/Mg Hydrox/Simethicone (Alum-Mag Hydrox-Simeth 951-639-93kt/5ml) 30 ml PO Q4H PRN PRN Reason: Indigestion Al Hydrox/Mg Hydrox/Simethicone (Alum-Mag Hydrox-Simeth 262-143-35yf/5ml) 30 ml PO Q4H PRN PRN Reason: Indigestion Bisacodyl (Dulcolax) 10 mg MI QDAY PRN PRN Reason: constipation unrelieved by MOM Bisacodyl (Dulcolax) 10 mg MI QDAY PRN PRN Reason: constipation unrelieved by MOM Dextrose (D50w (25gm)) 0 ml IV PRN PRN PRN Reason: Hypoglycemia Enoxaparin Sodium (Lovenox) 40 mg SUB-Q QDAY ALESHA Insulin Human Regular 100 (units/ Sodium Chloride) 100 mls @ 1 mls/hr IV TITR ALESHA; 1 UNITS/HR PRN Reason: Protocol Last Titration: 09/19/16 13:38 Dose: 8 units/hr, 8 mls/hr Magnesium Hydroxide (Milk Of Magnesia) 30 ml PO Q4H PRN PRN Reason: Constipation Ondansetron HCl (Zofran) 4 mg IM Q4H PRN PRN Reason: Nausea And Vomiting Review of Systems Constitutional: weight loss, sweats, fatigue, weakness, malaise, lethargy, no fever, no chills, no night sweats Ears, nose, mouth and throat: no ear discharge, no tinnitis, no decreased hearing, no nose pain, no nasal congestion Cardiovascular: lightheadedness, shortness of breath, no chest pain, no orthopnea, no palpitations, no rapid/irregular heart beat Respiratory: no cough, no cough with sputum, no excessive sputum, no hemoptysis , no shortness of breath Gastrointestinal: no abdominal pain, no nausea, no vomiting, no diarrhea, no constipation Genitourinary Male: no dysuria, no hematuria, no flank pain, no discharge, no urinary frequency, no urinary hesitancy Rectal: no pain, no incontinence, no bleeding Musculoskeletal: no neck stiffness, no neck pain, no shooting arm pain, no arm numbness/tingling Integumentary: no rash, no pruritis, no redness, no sores, no wounds Neurological: no head injury, no transient paralysis, no paralysis Psychiatric: no anxiety, no memory loss, no change in sleep habits Endocrine: polyphagia, excessive thirst, polydipsia, polyuria, excessive sweating, flushing, no cold intolerance, no heat intolerance Hematologic/Lymphatic: no easy bruising, no easy bleeding Allergic/Immunologic: no urticaria, no allergic rhinitis, no wheezing Exam - Constitutional Vitals: Temp Pulse Resp BP Pulse Ox 97.9 F 109 H 20 154/88 100 09/19/16 08:00 09/19/16 08:00 09/19/16 09:19 09/19/16 08:00 09/19/16 13:02 General appearance: Present: no acute distress - EENT Eyes: Present: PERRL ENT: hearing intact - Neck Neck: Present: supple - Respiratory Respiratory effort: normal Respiratory: bilateral: CTA - Cardiovascular Rhythm: regular Heart Sounds: Present: S1 & S2 - Extremities Extremities: no ischemia Peripheral Pulses: within normal limits - Abdominal General gastrointestinal: Present: soft, non-tender Male genitourinary: Present: deferred - Rectal Rectal Exam: deferred - Integumentary Integumentary: Present: clear, warm, dry - Musculoskeletal Musculoskeletal: strength equal bilaterally - Psychiatric Psychiatric: appropriate mood/affect - Neurologic Neurologic: CNII-XII intact - Allied Health Allied health notes reviewed: nursing Results - Labs CBC & Chem 7: 09/19/16 08:11 09/19/16 12:54 Labs: Laboratory Last Values WBC 6.7 K/mm3 (4.5-11.0) 09/19/16 08:11 RBC 5.20 M/mm3 (3.65-5.03) H 09/19/16 08:11 Hgb 17.2 gm/dl (11.8-15.2) H 09/19/16 08:11 Hct 45.9 % (35.5-45.6) H 09/19/16 08:11 MCV 88 fl (84-94) 09/19/16 08:11 MCH 33 pg (28-32) H 09/19/16 08:11 MCHC 37 % (32-34) H 09/19/16 08:11 RDW 13.1 % (13.2-15.2) L 09/19/16 08:11 Plt Count 296 K/mm3 (140-440) 09/19/16 08:11 Lymph % (Auto) 28.4 % (13.4-35.0) 09/19/16 08:11 [place] % (Auto) 9.0 % (0.0-7.3) H 09/19/16 08:11 Eos % (Auto) 0.6 % (0.0-4.3) 09/19/16 08:11 Baso % (Auto) 0.9 % (0.0-1.8) 09/19/16 08:11 Lymph # 1.9 K/mm3 (1.2-5.4) 09/19/16 08:11 [place] # 0.6 K/mm3 (0.0-0.8) 09/19/16 08:11 Eos # 0.0 K/mm3 (0.0-0.4) 09/19/16 08:11 Baso # 0.1 K/mm3 (0.0-0.1) 09/19/16 08:11 Seg Neutrophils % 60.5 % (40.0-70.0) 09/19/16 08:11 Seg Neutrophils # 4.2 K/mm3 (1.8-7.7) 09/19/16 08:11 VBG pH 7.310 (7.320-7.420) L 09/19/16 08:11 Sodium 126 mmol/L (137-145) L 09/19/16 12:54 Potassium 7.4 mmol/L (3.6-5.0) H* 09/19/16 10:07 Chloride 86.2 mmol/L (98-107) L 09/19/16 12:54 Carbon Dioxide 20 mmol/L (22-30) L 09/19/16 10:07 Anion Gap 27 mmol/L 09/19/16 10:07 BUN 20 mg/dL (9-20) 09/19/16 12:54 Creatinine < 0.2 mg/dL (0.8-1.5) L 09/19/16 12:54 Estimated GFR > 60 ml/min 09/19/16 12:54 BUN/Creatinine Ratio 100.00 % 09/19/16 12:54 Glucose 468 mg/dL (75-100) H 09/19/16 12:54 POC Glucose 400 (70-105) H 09/19/16 13:34 Hemoglobin A1c 11.6 % (4-6) H 09/19/16 10:07 Lactic Acid 1.50 mmol/L (0.7-2.0) 09/19/16 12:54 Calcium 9.7 mg/dL (8.4-10.2) 09/19/16 12:54 Phosphorus 5.20 mg/dL (2.5-4.5) H 09/19/16 10:30 Magnesium 2.50 mg/dL (1.7-2.3) H 09/19/16 10:30 Urine Color Colorless (Yellow) 09/19/16 Unknown Urine Turbidity Clear (Clear) 09/19/16 Unknown Urine pH 5.0 (5.0-7.0) 09/19/16 Unknown Ur Specific [place] 1.029 (1.003-1.030) 09/19/16 Unknown Urine Protein <15 mg/dl mg/dL (Negative) 09/19/16 Unknown Urine Glucose (UA) >=500 mg/dL (Negative) 09/19/16 Unknown Urine Ketones Tr mg/dL (Negative) 09/19/16 Unknown Urine Blood Neg (Negative) 09/19/16 Unknown Urine Nitrite Neg (Negative) 09/19/16 Unknown Urine Bilirubin Neg (Negative) 09/19/16 Unknown Urine Urobilinogen < 2.0 mg/dL (<2.0) 09/19/16 Unknown Ur Leukocyte Esterase Neg (Negative) 09/19/16 Unknown Urine WBC (Auto) < 1.0 /HPF (0.0-6.0) 09/19/16 Unknown Urine RBC (Auto) 1.0 /HPF (0.0-6.0) 09/19/16 Unknown Urine Mucus Few /HPF 09/19/16 Unknown - Imaging and Cardiology Chest x-ray: image reviewed (no acute disease in the chest) Assessment and Plan Assessment and plan: ASSESSMENT/PLAN Diabetic ketoacidosis (DKA) Admit to Critical care Insulin drip IV fluid hydration Hyperkalemia Most likely due to dehydration Insulin drip IV fluid hydration Repeat BMP Closely monitor electrolytes Severe hyponatremia Most likely due to dehydartion IVF @ NS that will correct it. Elevated A1C >11 ADA diet Diabetic education Nutrition consulted DVT prophylaxis Lovenox Advance Directives: Yes (Full Code) Contraindication Mechanical VTE Prophylaxis: Treatment Not Indicated Plan of care discussed with patient/family: Yes <MICHELLE ANTONY R - Last Filed: 09/20/16 12:12> History of Present Illness Date of admission: 09/19/16 10:22 Medications and Allergies Active Meds: Active Medications Al Hydrox/Mg Hydrox/Simethicone (Alum-Mag Hydrox-Simeth [phone]/5ml) 30 ml PO Q4H PRN PRN Reason: Indigestion Bisacodyl (Dulcolax) 10 mg MI QDAY PRN PRN Reason: constipation unrelieved by MOM Dextrose (D50w (25gm)) 50 ml IV PRN PRN PRN Reason: Hypoglycemia Enoxaparin Sodium (Lovenox) 40 mg SUB-Q QDAY ALESHA Last Admin: 09/20/16 09:37 Dose: 40 mg Dextrose/Sodium Chloride (D5/0.45ns) 1,000 mls @ 125 mls/hr IV DIRECT ALESHA Last Admin: 09/19/16 17:35 Dose: 125 mls/hr Insulin Aspart (Novolog) 0 units SUB-Q ACHS ALESHA PRN Reason: Protocol Last Admin: 09/20/16 10:36 Dose: Not Given Insulin Human Regular (Novolin R) 0 units SUB-Q ACHS ALESHA PRN Reason: Protocol Magnesium Hydroxide (Milk Of Magnesia) 30 ml PO Q4H PRN PRN Reason: Constipation Metformin HCl (Glucophage) 1,000 mg PO BIDDIAB ALESHA Ondansetron HCl (Zofran) 4 mg IM Q4H PRN PRN Reason: Nausea And Vomiting Exam - Constitutional Vitals: Temp Pulse Resp BP Pulse Ox 97.5 F L 99 H 17 129/87 89 09/20/16 08:00 09/20/16 10:30 09/20/16 10:30 09/20/16 10:30 09/20/16 10:30 Results - Labs CBC & Chem 7: 09/19/16 08:11 09/20/16 01:56 Labs: Laboratory Last Values WBC 6.7 K/mm3 (4.5-11.0) 09/19/16 08:11 RBC 5.20 M/mm3 (3.65-5.03) H 09/19/16 08:11 Hgb 17.2 gm/dl (11.8-15.2) H 09/19/16 08:11 Hct 45.9 % (35.5-45.6) H 09/19/16 08:11 MCV 88 fl (84-94) 09/19/16 08:11 MCH 33 pg (28-32) H 09/19/16 08:11 MCHC 37 % (32-34) H 09/19/16 08:11 RDW 13.1 % (13.2-15.2) L 09/19/16 08:11 Plt Count 296 K/mm3 (140-440) 09/19/16 08:11 Lymph % (Auto) 28.4 % (13.4-35.0) 09/19/16 08:11 [place] % (Auto) 9.0 % (0.0-7.3) H 09/19/16 08:11 Eos % (Auto) 0.6 % (0.0-4.3) 09/19/16 08:11 Baso % (Auto) 0.9 % (0.0-1.8) 09/19/16 08:11 Lymph # 1.9 K/mm3 (1.2-5.4) 09/19/16 08:11 [place] # 0.6 K/mm3 (0.0-0.8) 09/19/16 08:11 Eos # 0.0 K/mm3 (0.0-0.4) 09/19/16 08:11 Baso # 0.1 K/mm3 (0.0-0.1) 09/19/16 08:11 Seg Neutrophils % 60.5 % (40.0-70.0) 09/19/16 08:11 Seg Neutrophils # 4.2 K/mm3 (1.8-7.7) 09/19/16 08:11 VBG pH 7.310 (7.320-7.420) L 09/19/16 08:11 Sodium 137 mmol/L (137-145) 09/20/16 01:56 Potassium 5.1 mmol/L (3.6-5.0) H 09/20/16 01:56 Chloride 95.7 mmol/L (98-107) L 09/20/16 01:56 Carbon Dioxide 27 mmol/L (22-30) 09/20/16 01:56 Anion Gap 19 mmol/L 09/20/16 01:56 BUN 15 mg/dL (9-20) 09/20/16 01:56 Creatinine 0.5 mg/dL (0.8-1.5) L 09/20/16 01:56 Estimated GFR > 60 ml/min 09/20/16 01:56 BUN/Creatinine Ratio 30.00 % 09/20/16 01:56 Glucose 260 mg/dL (75-100) H 09/20/16 01:56 POC Glucose 213 (70-105) H 09/20/16 04:14 Hemoglobin A1c 11.6 % (4-6) H 09/19/16 10:07 Lactic Acid 1.50 mmol/L (0.7-2.0) 09/19/16 12:54 Calcium 9.3 mg/dL (8.4-10.2) 09/20/16 01:56 Phosphorus 5.20 mg/dL (2.5-4.5) H 09/19/16 10:30 Magnesium 2.50 mg/dL (1.7-2.3) H 09/19/16 10:30 Urine Color Colorless (Yellow) 09/19/16 Unknown Urine Turbidity Clear (Clear) 09/19/16 Unknown Urine pH 5.0 (5.0-7.0) 09/19/16 Unknown Ur Specific [place] 1.029 (1.003-1.030) 09/19/16 Unknown Urine Protein <15 mg/dl mg/dL (Negative) 09/19/16 Unknown Urine Glucose (UA) >=500 mg/dL (Negative) 09/19/16 Unknown Urine Ketones Tr mg/dL (Negative) 09/19/16 Unknown Urine Blood Neg (Negative) 09/19/16 Unknown Urine Nitrite Neg (Negative) 09/19/16 Unknown Urine Bilirubin Neg (Negative) 09/19/16 Unknown Urine Urobilinogen < 2.0 mg/dL (<2.0) 09/19/16 Unknown Ur Leukocyte Esterase Neg (Negative) 09/19/16 Unknown Urine WBC (Auto) < 1.0 /HPF (0.0-6.0) 09/19/16 Unknown Urine RBC (Auto) 1.0 /HPF (0.0-6.0) 09/19/16 Unknown Urine Mucus Few /HPF 09/19/16 Unknown Assessment and Plan Assessment and plan: I saw and evaluated the patient. I agree with the findings and the plan of care as documented in the Nurse Practitioner's~note, with the following corrections and additions.
[2016-09-19 16:30] LABS: Blood Urea Nitrogen 19 mg/dL (9-20); Calcium 9.6 mg/dL (8.4-10.2); Chloride 91.4 mmol/L (98-107); Glucose 245 mg/dL (75-100); Sodium 133 mmol/L (137-145)
[2016-09-19] MEDS ORDERED: NACL 0.9% 1000 ML 1,000 ML ONE (16:36)
[2016-09-19 16:46] LABS: Potassium 6.3 mmol/L (3.6-5.0)
[2016-09-19 17:29] LABS: Anion Gap 21 mmol/L; Carbon Dioxide 27 mmol/L (22-30)
[2016-09-19] MEDS ORDERED: D5/0.45NS 1,000 ML IV SCH (18:00)
[2016-09-19 20:46] LABS: Blood Urea Nitrogen 18 mg/dL (9-20); Calcium 9.3 mg/dL (8.4-10.2); Carbon Dioxide 27 mmol/L (22-30); Chloride 94.3 mmol/L (98-107); Glucose 235 mg/dL (75-100); Sodium 138 mmol/L (137-145)
[2016-09-19 21:14] LABS: Anion Gap 22 mmol/L
[2016-09-20 02:31] LABS: Blood Urea Nitrogen 15 mg/dL (9-20); Calcium 9.3 mg/dL (8.4-10.2); Carbon Dioxide 27 mmol/L (22-30); Chloride 95.7 mmol/L (98-107); Glucose 260 mg/dL (75-100)
[2016-09-20 03:07] LABS: Anion Gap 19 mmol/L; Potassium 5.1 mmol/L (3.6-5.0); Sodium 137 mmol/L (137-145)
[2016-09-20] MEDS: LOVENOX SUB-Q SCH (09:37)
[2016-09-20] MEDS: NOVOLOG SUB-Q SCH ×2 (10:36→13:00)
[2016-09-20] MEDS ORDERED: LEVEMIR SUB-Q ONE (11:00)
[2016-09-20] MEDS ORDERED: D50W (25GM) Syringe IV PRN (11:53)
--- NOTE | 2016-09-20 12:20 | Progress Note ---
Assessment and Plan Assessment and plan: Diabetic ketoacidosis (DKA) Resolved. Patient will be transitioned from IV insulin to long-acting insulin per protocol. Patient will also be started on metformin. Follow BMP in a.m. Hyperkalemia Resolved. Follow-up BMP in the morning. Severe hyponatremia Most likely due to pseudohyponatremia and dehydration Resolved. Elevated A1C >11 ADA diet Diabetic education Nutrition consulted DVT prophylaxis Lovenox History Interval history: No new issues overnight. Hospitalist Physical - Constitutional Vitals: Temp Pulse Resp BP Pulse Ox 97.5 F L 99 H 17 129/87 89 09/20/16 08:00 09/20/16 10:30 09/20/16 10:30 09/20/16 10:30 09/20/16 10:30 General appearance: Present: no acute distress - EENT Eyes: Present: PERRL, EOM intact ENT: hearing intact, clear oral mucosa, dentition normal - Neck Neck: Present: supple, normal ROM - Respiratory Respiratory effort: normal Respiratory: bilateral: CTA - Cardiovascular Rhythm: regular Heart Sounds: Present: S1 & S2. Absent: gallop, rub - Extremities Extremities: no ischemia, No edema, Full ROM - Abdominal General gastrointestinal: soft, non-tender, non-distended, normal bowel sounds - Integumentary Integumentary: Present: clear, warm, dry - Neurologic Neurologic: CNII-XII intact, moves all extremities Results - Labs CBC & Chem 7: 09/19/16 08:11 09/20/16 01:56 Labs: Laboratory Last Values WBC 6.7 K/mm3 (4.5-11.0) 09/19/16 08:11 RBC 5.20 M/mm3 (3.65-5.03) H 09/19/16 08:11 Hgb 17.2 gm/dl (11.8-15.2) H 09/19/16 08:11 Hct 45.9 % (35.5-45.6) H 09/19/16 08:11 MCV 88 fl (84-94) 09/19/16 08:11 MCH 33 pg (28-32) H 09/19/16 08:11 MCHC 37 % (32-34) H 09/19/16 08:11 RDW 13.1 % (13.2-15.2) L 09/19/16 08:11 Plt Count 296 K/mm3 (140-440) 09/19/16 08:11 Lymph % (Auto) 28.4 % (13.4-35.0) 09/19/16 08:11 [place] % (Auto) 9.0 % (0.0-7.3) H 09/19/16 08:11 Eos % (Auto) 0.6 % (0.0-4.3) 09/19/16 08:11 Baso % (Auto) 0.9 % (0.0-1.8) 09/19/16 08:11 Lymph # 1.9 K/mm3 (1.2-5.4) 09/19/16 08:11 [place] # 0.6 K/mm3 (0.0-0.8) 09/19/16 08:11 Eos # 0.0 K/mm3 (0.0-0.4) 09/19/16 08:11 Baso # 0.1 K/mm3 (0.0-0.1) 09/19/16 08:11 Seg Neutrophils % 60.5 % (40.0-70.0) 09/19/16 08:11 Seg Neutrophils # 4.2 K/mm3 (1.8-7.7) 09/19/16 08:11 VBG pH 7.310 (7.320-7.420) L 09/19/16 08:11 Sodium 137 mmol/L (137-145) 09/20/16 01:56 Potassium 5.1 mmol/L (3.6-5.0) H 09/20/16 01:56 Chloride 95.7 mmol/L (98-107) L 09/20/16 01:56 Carbon Dioxide 27 mmol/L (22-30) 09/20/16 01:56 Anion Gap 19 mmol/L 09/20/16 01:56 BUN 15 mg/dL (9-20) 09/20/16 01:56 Creatinine 0.5 mg/dL (0.8-1.5) L 09/20/16 01:56 Estimated GFR > 60 ml/min 09/20/16 01:56 BUN/Creatinine Ratio 30.00 % 09/20/16 01:56 Glucose 260 mg/dL (75-100) H 09/20/16 01:56 POC Glucose 213 (70-105) H 09/20/16 04:14 Hemoglobin A1c 11.6 % (4-6) H 09/19/16 10:07 Lactic Acid 1.50 mmol/L (0.7-2.0) 09/19/16 12:54 Calcium 9.3 mg/dL (8.4-10.2) 09/20/16 01:56 Phosphorus 5.20 mg/dL (2.5-4.5) H 09/19/16 10:30 Magnesium 2.50 mg/dL (1.7-2.3) H 09/19/16 10:30 Urine Color Colorless (Yellow) 09/19/16 Unknown Urine Turbidity Clear (Clear) 09/19/16 Unknown Urine pH 5.0 (5.0-7.0) 09/19/16 Unknown Ur Specific [place] 1.029 (1.003-1.030) 09/19/16 Unknown Urine Protein <15 mg/dl mg/dL (Negative) 09/19/16 Unknown Urine Glucose (UA) >=500 mg/dL (Negative) 09/19/16 Unknown Urine Ketones Tr mg/dL (Negative) 09/19/16 Unknown Urine Blood Neg (Negative) 09/19/16 Unknown Urine Nitrite Neg (Negative) 09/19/16 Unknown Urine Bilirubin Neg (Negative) 09/19/16 Unknown Urine Urobilinogen < 2.0 mg/dL (<2.0) 09/19/16 Unknown Ur Leukocyte Esterase Neg (Negative) 09/19/16 Unknown Urine WBC (Auto) < 1.0 /HPF (0.0-6.0) 09/19/16 Unknown Urine RBC (Auto) 1.0 /HPF (0.0-6.0) 09/19/16 Unknown Urine Mucus Few /HPF 09/19/16 Unknown
[2016-09-20 12:26] LABS: Anion Gap 21 mmol/L; BUN/Creatinine Ratio 18.57; Blood Urea Nitrogen 13 mg/dL (9-20); Calcium 8.8 mg/dL (8.4-10.2); Carbon Dioxide 21 mmol/L (22-30); Chloride 100.2 mmol/L (98-107); Glucose 195 mg/dL (75-100); Potassium 4.4 mmol/L (3.6-5.0); Sodium 138 mmol/L (137-145)
[2016-09-20 14:26] LABS: Bilirubin,Urine NEG (Negative); Blood,Urine NEG (Negative); Ketones,Urine TR mg/dL (Negative); Leukocyte Esterase,Urine NEG (Negative); Mucus,Urine 2+ /HPF; Nitrite,Urine NEG (Negative); Urobilinogen,Urine < 2.0 mg/dL (<2.0)
[2016-09-20] MEDS: GLUCOPHAGE PO SCH (17:56)
--- NOTE | 2016-09-21 07:28 | Discharge Summary ---
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 Patient was at his normal baseline state of health until 2 weeks ago he had progressive worsening fatigue, insomnia, polyuria, polydipsia and blurred vision. Patient reports that he could not walk across a room or move without becoming dizzy or lightheaded. NO exacerbating or relieving factors. Patient stated that he never felt this way before. He never has been diagnosed with diabetes mellitus, but his mom had DM. Patient denied headache, neck pain, chest pain, shortness of breath, abdominal pain, testicular pain, skin rash. On admission, patient was found to have DKA and thus admitted to the ICU and started on IV insulin drip and aggressive IV fluid hydration. Once the patient's anion gap closed, patient was transitioned to long-acting insulin and started on metformin. Patient's blood sugar stabilized in the high 100 low 200 range. Patient is felt to have received maximal hospital benefit. Therefore, patient will be discharged home as follow-up with primary care physician. Dedicated discharge time 31 minutes. Disposition: DC-01 TO HOME OR SELFCARE Time spent for discharge: 31 - Discharge Diagnoses (1) Diabetes mellitus Status: Acute Qualifiers: Diabetes mellitus type: D Diabetes mellitus complication status: D Diabetes mellitus complication detail: D Diabetic retinopathy severity: D Proliferative retinopathy type: P Diabetes mellitus macular edema: D Diabetes mellitus snf insulin use: D Laterality: L Chronic kidney disease stage: C (2) DKA (diabetic ketoacidoses) Status: Acute Qualifiers: Diabetes mellitus type: D Diabetes mellitus complication detail: D Core Measure Documentation - Palliative Care Palliative Care/ Comfort Measures: Not Applicable - Core Measures Any of the following diagnoses?: none Exam - Constitutional Vitals: Temp Pulse Resp BP Pulse Ox 98.7 F 97 H 20 131/71 93 09/20/16 22:32 09/20/16 22:32 09/20/16 22:32 09/20/16 22:32 09/20/16 22:32 General appearance: Present: no acute distress, well-nourished - EENT Eyes: Present: PERRL ENT: hearing intact, clear oral mucosa - Neck Neck: Present: supple, normal ROM - Respiratory Respiratory effort: normal Respiratory: bilateral: CTA - Cardiovascular Heart Sounds: Present: S1 & S2. Absent: rub, click - Extremities Extremities: pulses symmetrical, No edema Peripheral Pulses: within normal limits - Abdominal General gastrointestinal: Present: soft, non-tender, non-distended, normal bowel sounds Male genitourinary: Present: normal - Integumentary Integumentary: Present: clear, warm, dry - Musculoskeletal Musculoskeletal: gait normal, strength equal bilaterally - Psychiatric Psychiatric: appropriate mood/affect, intact judgment & insight - Neurologic Neurologic: CNII-XII intact, moves all extremities Plan Activity: no restrictions Weight Bearing Status: Full Weight Bearing Diet: diabetic Follow up with: PRIMARY CARE, [Primary Care Provider] - 3-5 Days Prescriptions: Insulin Regular, Human [HumuLIN R] 1 units SUB-Q ACHS #30 units Lancets/Blood Glucose Strips [Fora [id number] Lanct-Str] 1 each QACHS # 60 combo..pkg metFORMIN [Glucophage] 1,000 mg PO BIDDIAB #60 tablet
[2016-09-21 08:46] VITALS: BP 123/76
[2016-09-21] MEDS: GLUCOPHAGE PO SCH (08:59)
[2016-09-21] MEDS: LOVENOX SUB-Q SCH (09:01)
== END 2016-09-21 15:14 | disposition home or self-care (01) | DRG 638 ==
LOC: ED 07:55 → CC1 10:22 → 3A 09-20 14:10
PROVIDERS: ADMIT Hospitalist; ATTEND Hospitalist
DX: E13.10 Other specified diabetes mellitus with ketoacidosis without coma (principal); E87.1 Hypo-osmolality and hyponatremia; E87.5 Hyperkalemia; Z91.013 Allergy to seafood; Z83.3 Family history of diabetes mellitus; Z82.49 Family history of ischemic heart disease and other diseases of the circulatory system
CPT/HCPCS: 36415; 71010; 80048; 81001; 82140; 82805; 82962; 83036; 83735; 84100; 85025; 87040; 87086; 93005; 93010; 96361; 96374; 96375; 99291; 99406; J1650; J1815; J1818; J7030